=== PATIENT | female | born 1960 | race Caucasian/White ===

== ENCOUNTER 2019-03-02 08:59 | Day surgery (SDC) | payer OTHER ==
[2019-03-02] MEDS ORDERED: PROPOFOL 20 ML (11:05)
[2019-03-02] MEDS ORDERED: LIDOCAINE 1% (MDV) 20 ML INJ (11:05)
[2019-03-02] MEDS ORDERED: CEFAZOLIN 1 GM INJ (11:12)
[2019-03-02] MEDS ORDERED: FENTAnyl 50 MCG/ML VIAL (11:14)
[2019-03-02] MEDS ORDERED: ONDANSETRON 4 MG INJ (11:15)
[2019-03-02] MEDS: morphine SULFATE/PF (10 MG/10 ML) INJ (12:28)
[2019-03-02] MEDS ORDERED: HYDROCODONE/APAP (5/325) TAB PO ×2 (12:30)
[2019-03-02] MEDS ORDERED: HYDROmorphONE 1 MG/5 ML IV SYRINGE IV ×2 (12:49→13:00)
[2019-03-02] MEDS ORDERED: FENTAnyl 50 MCG/ML VIAL IV ×3 (13:00)
[2019-03-02] MEDS ORDERED: OXYCODONE/ACETAMINOPHEN (5/325) TAB PO ×2 (13:00)
[2019-03-02] MEDS: HYDROmorphONE 1 MG/5 ML IV SYRINGE IV ×3 (13:18→13:36)
[2019-03-02] MEDS: ONDANSETRON 4 MG INJ IV (13:22)
[2019-03-02] MEDS: KETOROLAC 30 MG INJ IV (13:35)
[2019-03-02] MEDS: HYDROCODONE/APAP (5/325) TAB PO (14:12)
== END 2019-03-02 16:25 | disposition home or self-care (01) ==
LOC: SDS 08:59
DX: S83.241A Other tear of medial meniscus, current injury, right knee, initial encounter (principal); S83.281A Other tear of lateral meniscus, current injury, right knee, initial encounter; M65.861 Other synovitis and tenosynovitis, right lower leg; E66.01 Morbid (severe) obesity due to excess calories; X58.XXXA Exposure to other specified factors, initial encounter; Y93.89 Activity, other specified; Y92.89 Other specified places as the place of occurrence of the external cause; Y99.8 Other external cause status
CPT/HCPCS: 29880